=== PATIENT | male | born 1940 | race Caucasian/White ===

== ENCOUNTER 2019-01-21 08:55 | Day surgery (SDC) | payer OTHER, BC ==
[2019-01-20 10:36] LABS: BASOPHILS % (AUTO) 0.5 % (0.0-2.0); EOSINOPHILS # (AUTO) 0.1 K/uL (0.0-0.4); EOSINOPHILS % (AUTO) 1.1 % (0.0-4.0); HEMATOCRIT 49.2 % (36-54); HEMOGLOBIN 17.1 g/dL (14.0-18.0); LYMPHOCYTES % (AUTO) 19.1 % (20.5-51.5); MEAN CORPUSCULAR HEMOGLOBIN 34 pg (27-31); MEAN CORPUSCULAR HGB CONC 35 % (32-36); MEAN CORPUSCULAR VOLUME 97 fL (79.0-98.0); MONOCYTES # (AUTO) 0.5 K/uL (0.0-1.0); NEUTROPHILS # (AUTO) 3.8 K/uL (1.8-7.7); NEUTROPHILS % (AUTO) 70.3 % (40.0-70.0); PLATELET COUNT (AUTO) 142 K/uL (130-430); RED BLOOD CELL COUNT(AUTO) 5.06 MIL/uL (4.2-6.2); RED CELL DISTRIBUTION WIDTH 13.2 % (9.0-15.0); WHITE BLOOD COUNT (AUTO) 5.4 K/uL (4.8-10.8)
[2019-01-20 10:38] LABS: BILIRUBIN,URINE NEGATIVE (NEGATIVE); BLOOD, URINE 2+ (NEGATIVE); CLARITY/URINE CLEAR (CLEAR); COLOR,URINE YELLOW (YELLOW); GLUCOSE,URINE TRACE (NEGATIVE); KETONES,URINE NEGATIVE (NEGATIVE); LEUKOCYTE ESTERASE ,URINE NEGATIVE (NEGATIVE); NITRITE, URINE NEGATIVE (NEGATIVE); PROTEIN URINE 1+ (NEGATIVE); UROBILINOGEN,URINE 0.2 (0.2-1.0)
[2019-01-20 10:45] LABS: ANION GAP 8 (5-15); CALCIUM 9.1 mg/dL (8.4-11.0); CHLORIDE 108 mmol/L (98-107); CREATININE 1.56 mg/dL (0.55-1.30); GLUCOSE 88 mg/dL (70-99); POTASSIUM 3.9 mmol/L (3.5-5.1); SODIUM SERUM 141 mmol/L (136-145); UREA NITROGEN, BLOOD 13 mg/dL (8-21)
[2019-01-20 10:52] LABS: BACTERIA,URINE FEW /HPF (None Seen); WBC,URINE 0-3 /HPF (0-3)
[2019-01-20 11:13] LABS: PROTHROMBIN TIME 9.8 SECS (9.5-12.5)
[~2019-01-21] VITALS: Ht 175.3 cm; Wt 93.4 kg
[2019-01-21] MEDS ORDERED: LR 1,000 ML IV.SOLN IV ONE (12:00)
[2019-01-21] MEDS ORDERED: PROPOFOL 200MG/ 20ML VIAL (DIPRIVAN) IV ONE (12:00)
[2019-01-21] MEDS ORDERED: ONDANSETRON HCL 4 MG/2 ML VIAL IVP ONE (12:00)
[2019-01-21] MEDS ORDERED: BUPIVACAINE /PF 0.5% 30 ML VIAL INJ ONE (12:00)
[2019-01-21] MEDS ORDERED: NS IRRIG SOLN 1000 ML IR ONE (12:00)
[2019-01-21] MEDS ORDERED: MIDAZOLAM HCL 5 MG/5 ML VIAL IVP ONE (12:00)
[2019-01-21] MEDS ORDERED: [UNRECOGNIZED DRUG - OTHER] INJ ONE (12:00)
[2019-01-21] MEDS ORDERED: fentaNYL CITRATE/PF 100 MCG/2 ML AMP IVP PRN ×2 (13:00)
[2019-01-21] MEDS ORDERED: ONDANSETRON HCL 4 MG/2 ML VIAL IVP PRN (13:00)
[2019-01-21 16:27] VITALS: BP_SYST 128
== END 2019-01-21 14:55 | disposition home or self-care (01) ==
LOC: SMU 08:55 → SDS 08:55
PROVIDERS: ATTEND Orthopaedic Surgery
DX: G56.01 Carpal tunnel syndrome, right upper limb (principal); M77.02 Medial epicondylitis, left elbow; I10 Essential (primary) hypertension; E66.3 Overweight; J44.9 Chronic obstructive pulmonary disease, unspecified; K21.9 Gastro-esophageal reflux disease without esophagitis; G62.9 Polyneuropathy, unspecified; M19.90 Unspecified osteoarthritis, unspecified site; Z88.8 Allergy status to other drugs, medicaments and biological substances; Z96.652 Presence of left artificial knee joint; Z98.890 Other specified postprocedural states; Z79.01 Long term (current) use of anticoagulants
CPT/HCPCS: 20551; 36415; 64721; 71046; 80048; 81000; 85025; 85610; 85730; 93005; J2250; J2405; J2704; J3490; J7120